=== PATIENT | male | born 1955 | race Caucasian/White ===

== ENCOUNTER 2018-10-21 10:49 | Emergency (ER) | payer BC ==
[~2018-10-21 10:49] MED LIST: BISM-40 PO; HYDR-653 PO; INDO-23 PO; LEV500 PO; LOR5/325 PO; METR-1 PO; OXYC-869 PO; PAN40 PO; POLY10DR20 OP; SIME125C14 PO; VALA100062 PO
[2018-10-21] MEDS ORDERED: IBUP400T13 PO (11:03)
[2018-10-21] MEDS ORDERED: ACET-1966 PO (11:03)
[2018-10-21] MEDS ORDERED: KETOROLAC 60 MG/2 ML VIAL IM ONE ×2 (11:10→11:14)
--- NOTE | 2018-10-21 11:25 | ER Report ---
History and Physical Time Seen By MD: 11:25 Hx. of Stated Complaint: "got ran over by dogs." c/o R knee injury, swelling noted to medial aspect of knee. ambulatory with limp. PMS intact distal. HPI/ROS CHIEF COMPLAINT: Right knee injury HISTORY OF PRESENT ILLNESS: Patient is a 63-year-old male here with complaints of right knee pain after being tripped by his dogs. Patient is neurovascularly intact and able to bear weight. Denies prior fractures in that extremity is neurovascularly intact in the distal extremity. Denies further injuries at this time. REVIEW OF SYSTEMS: Constitutional: No fever, no chills. Musculoskeletal: + right knee pain and mild edema Skin: No rashes. Neurological: NV intact in distal extremity Home Meds Reported Medications Ibuprofen (IBUPROFEN) 400 Mg Tablet, 2 TAB PO Q6H, TAB 10/21/18 Acetaminophen (TYLENOL) 325 Mg Tablet, 650 MG PO, TAB 10/21/18 Discontinued Scripts Hydrocodone Bit/Acetaminophen (NORCO 5-325 TABLET) 1 Each Tablet, 1 EACH PO Q4- 6H PRN for PAIN, #12 TAB Prov:CATY ROE 12/22/16 Valacyclovir Hcl (VALTREX) 1,000 Mg Tablet, 1000 MG PO TID, #30 TAB Prov:CATY ROE 12/22/16 Indomethacin (INDOMETHACIN) 50 Mg Capsule, 50 MG PO TID for PAIN, #30 CAPSULE Prov:LIANG GASPAR DO 04/15/16 Hx Smoking: No Smoking Status: Never Smoker Exposure to Second Hand Smoke?: No Constitutional Vital Sign - Last 24 Hours 10/21/18 10/21/18 10:58 11:48 Temp 98.5 Pulse 72 64 Resp 14 16 B/P (MAP) 134/96 124/82 (96) Pulse Ox 91 92 O2 Delivery Room Air Room Air Physical Exam General Appearance: NAD Neurological: + NV intact in distal extremities Skin: Warm and dry, no rashes. Musculoskeletal: Neck is supple non tender. + right knee tenderness on ROM, stable joint . DIFFERENTIAL DIAGNOSIS: After history and physical exam differential diagnosis was considered for contusion, abrasion, sprain, fracture Medical Decision Making EKG/Imaging Imaging Location: [facility] [place] Patient: Jason Manuel : 1955 Visit/Account:[id number] Date of Sevstacy: 10/21/2018 ADDENDUM #1 Please note the impression should read: 1. No acute osseous process. 2. Degenerative findings as characterized above. Report Dictated By: Bang Sneed DO at 10/21/2018 11:43 AM Report E-Signed By: Bang Sneed DO at 10/21/2018 11:43 AM ORIGINAL REPORT Technique: KNEE 3 VIEW RIGHT HISTORY: fall, injury Comparison studies: None FINDINGS: There is no acute fracture. The alignment of the right knee is julia ntained. Patellofemoral osteophytosis is present. There is enthesopathy most conspicuous along the superior and inferior pole of the patella as well as the medial femoral condyle. No significant knee joint effusion. IMPRESSION: 1. Acute osseous process. 2. Degenerative findings as characterized above.i ED Course/Re-evaluation ED Course Patient is a 63-year-old male here with complaints of right knee pain after being tripped by his dogs. X-ray imaging showed no acute fracture. Roney wrap was applied for stability. Patient was advised to follow-up with orthopedics as needed. Patient was neurovascularly intact prior to discharge. Decision to Disposition Date: Oct 21, 2018 Decision to Disposition Time: 12:00 Depart Departure Latest Vital Signs Vital Signs Date Time Temp Pulse Resp B/P (MAP) Pulse Ox O2 Delivery O2 Flow Rate FiO2 10/21/18 11:48 64 16 124/82 (96) 92 Room Air 10/21/18 10:58 98.5 Impression: Primary Impression: Right knee sprain Condition: Improved Disposition: HOME OR SELF-CARE Patient Instructions: Knee Pain (ED) Additional Instructions: Please keep Roney wrap in place. Rest, ice, use NSAIDs such as ibuprofen or naproxen as needed for pain control. Please follow-up with orthopedics in one week as needed. Please return promptly if you develop worsening pain, instability of the joint, numbness or weakness. HONG GASTELUM DO Oct 21, 2018 11:25
--- NOTE | 2018-10-21 11:33 | RADIOLOGY IMAGING REPORT ---
FACILITY: [facility] - [place] PATIENT NAME: Jason Manuel : 1955 MR: [id number] V: [id number] EXAM DATE: ORDERING PHYSICIAN: HONG GASTELUM TECHNOLOGIST: [facility] Patient: Jason Manuel : 1955 Visit/Account:[id number] Date of Sevice: 10/21/2018 ADDENDUM #1 Please note the impression should read: 1. No acute osseous process. 2. Degenerative findings as characterized above. Report Dictated By: Bang Sneed DO at 10/21/2018 11:43 AM Report E-Signed By: Bang Sneed DO at 10/21/2018 11:43 AM ORIGINAL REPORT Technique: KNEE 3 VIEW RIGHT HISTORY: fall, injury Comparison studies: None FINDINGS: There is no acute fracture. The alignment of the right knee is maintained. Patellofemoral osteophytosis is present. There is enthesopathy most conspicuous along the superior and inferior po le of the patella as well as the medial femoral condyle. No significant knee joint effusion. IMPRESSION: 1. Acute osseous process. 2. Degenerative findings as characterized above.i Report Dictated By: Bang Sneed DO at 10/21/2018 11:26 AM Report E-Signed By: Bang Sneed DO at 10/21/2018 11:28 AM WSN:[id number]
[2018-10-21 11:48] VITALS: BP 124/82
== END 2018-10-21 12:04 | disposition home or self-care (01) ==
LOC: ER 11:12
DX: S83.91XA Sprain of unspecified site of right knee, initial encounter (principal); W01.0XXA Fall on same level from slipping, tripping and stumbling without subsequent striking against object, initial encounter
CPT/HCPCS: 73562; 96372; 99283; J1885

== ENCOUNTER → 2019-05-18 | Emergency (ER) | payer BC ==
[~2019-05-18] MED LIST changes: +ACET-1966 PO; +FAMOTIDINE 20 MG TAB PO ONE; +IBUP400T13 PO; +PRED20TA6 PO; +TRIA15OI20 TP; +predniSONE 20 MG TAB PO ONE
[2019-05-18 17:38] VITALS: BP 118/77
--- NOTE | 2019-05-18 17:49 | ER Report ---
History and Physical Time Seen By MD: 17:46 Hx. of Stated Complaint: PATIENT HAS AN AREA ON THE LEFT SIDE OF HIS NECK THAT IS ITCHING AND BURNING HPI/ROS CHIEF COMPLAINT: Rash around the neck HISTORY OF PRESENT ILLNESS: This is a 63-year-old male who presents to the emergency department for rash remanent. Patient states that today he developed a rash on the right side of his neck, moved over to the left side, did have some inflammation to the neck, never felt short of breath or having these breathing. He states that he has applied mosquito repellent to his neck, was wearing mosquito netting around his head and wearing a turtleneck around his neck as well where he had the mosquito netting tucked in. No fevers or chills. No nausea or vomiting. Had a now yesterday, is currently taking clindamycin, no known al lergies to antibiotics. REVIEW OF SYSTEMS: Respiratory: No cough, no dyspnea. Cardiovascular: No chest pain, no palpitations. Gastrointestinal: No vomiting, no abdominal pain. Musculoskeletal: No back pain. Integumentary: As above. Allergies: Coded Allergies: No Known Drug Allergies (Unverified , 05/18/19) Home Meds Active Scripts Triamcinolone Acetonide 0.1% Oint 15 Gm Tube (TRIAMCINOLONE ACETONIDE 0.1% 15 GM TUBE) 15 Gm Oint...g., 15 GM TP TID PRN for prn, #1 TUBE Prov:TANJA RECIO [facility]- 05/18/19 Prednisone (PREDNISONE) 20 Mg Tablet, 20 MG PO BID, #10 TAB Prov:TANJA RECIO [facility]- 05/18/19 Reported Medications Ibuprofen (IBUPROFEN) 400 Mg Tablet, 2 TAB PO Q6H, TAB 10/21/18 Acetaminophen (TYLENOL) 325 Mg Tablet, 650 MG PO, TAB 10/21/18 Past Medical/Surgical History The patient has a past medical and surgical history of pneumonia, gout, wrist fracture, right knee surgery, broken toe. Reviewed Nurses Notes: Yes Hx Smoking: No Smoking Status: Never Smoker Exposure to Second Hand Smoke?: No Constitutional Vital Sign - Last 24 Hours 05/18/19 17:38 Pulse 76 Resp 16 B/P (MAP) 118/77 Pulse Ox 91 O2 Delivery Room Air Physical Exam General Appearance: The patient is alert, has no immediate need for airway protection and no current signs of toxicity. Eyes: Pupils equal and round no injection. Respiratory: Chest is non tender, lungs are clear to auscultation. No stridor. No wheezing. Cardiac: regular rate and rhythm. Gastrointestinal: Abdomen is soft and non tender, no masses, bowel sounds normal. Musculoskeletal: Neck: Neck is supple and non tender. Extremities have full range of motion and are non tender. Skin: Blanchable, papular rash to the anterior neck, in a semi-linear fashion, around where the turtle neck would have rubbed. DIFFERENTIAL DIAGNOSIS: After history and physical exam differential diagnosis was considered for contact dermatitis, allergic reaction, anaphylaxis. Medical Decision Making ED Course/Re-evaluation ED Course The patient was admitted to room. A history and physical obtained. Differential diagnoses were considered. After lengthy discussion and examination of the patient, did determine the patient likely has a contact dermatitis, he was wearing a turtleneck today, tucked under the turtleneck was his mosquito netting, he also used mosquito spray that he rubbed on his neck, he did have some mild resolution with the Benadryl that he taken earlier, he also took some Benadryl prior to arrival there was some moderate resolution during his stay in the emergency department. He was given famotidine in the emergency department, he was also given prednisone, as well as a prescription for prednisone. Also given triamcinolone cream. The patient had dental work done yesterday and has been on antibiotics and do not feel that this is related to the antibiotics at this time, however he will monitor very closely should his symptoms not resolve her become worse he will stop taking the antibiotic and return to the emergency department immediately. The patient and his expressed understanding, were agreeable with this plan of care and discharged home. Decision to Disposition Date: May 18, 2019 Decision to Disposition Time: 18:02 Depart Departure Latest Vital Signs Vital Signs Date Time Temp Pulse Resp B/P (MAP) Pulse Ox O2 Delivery O2 Flow Rate FiO2 05/18/19 17:38 76 16 118/77 91 Room Air Impression: Primary Impression: Contact dermatitis Condition: Improved Disposition: HOME OR SELF-CARE New Scripts Triamcinolone Acetonide 0.1% Oint 15 Gm Tube (TRIAMCINOLONE ACETONIDE 0.1% 15 GM TUBE) 15 Gm Oint...g. 15 GM TP TID PRN for prn, #1 TUBE Prov: TANJA RECIO 05/18/19 Prednisone (PREDNISONE) 20 Mg Tablet 20 MG PO BID, #10 TAB Prov: TANJA RECIO 05/18/19 Patient Instructions: Contact Dermatitis (ED), Dermatitis (ED) Additional Instructions: You can continue taking your antibiotics, just monitor closely for recurrent adverse reactions, worsening symptoms or difficulty breathing or swallowing. Use the cream as needed and take the oral steroids for 5 days, starting t omorrow. Be aware that steroids can cause your blood sugars to go up while for the duration of the steroid use. Drink plenty of water. I would avoid wearing the turtle neck with the mosquito netting for the next few days if possible, also try to avoid applying mosquito repellant to the neck if possible. Please establish with and follow up with a primary care provider within one week for reevaluation. Return to the ED for any other concerns or worsening symptoms. Problem Qualifiers Primary Impression: Contact dermatitis Contact dermatitis type: irritant Contact dermatitis trigger: other chemical product Qualified Codes: L24.5 - Irritant contact dermatitis due to other chemical products TANJA RECIO May 18, 2019 17:49
== END ==
LOC: ER 18:06
DX: L24.5 Irritant contact dermatitis due to other chemical products (principal)
CPT/HCPCS: 99283; J7512